=== PATIENT | male | born 1965 | race Caucasian/White ===

== ENCOUNTER 2019-12-14 19:03 | Emergency (ER) | payer OTHER ==
[~2019-12-14] VITALS: Ht 193 cm; Wt 120.0 kg
[~2019-12-14 19:03] MED LIST: CALC-126 PO; HYDR25TA6 PO
[2019-12-14 19:36] VITALS: BP 184/117
--- NOTE | 2019-12-14 19:45 | NUR ---
PT TO LOBBY, WAIT TIME EXPLAINED.
[2019-12-14] MEDS ORDERED: KETOROLAC 30 MG/1 ML IM ONE (20:00)
[2019-12-14] MEDS ORDERED: KETOROLAC 60 MG/2 ML ONE (20:11)
--- NOTE | 2019-12-14 20:32 | NUR ---
RN to bedside, patient reports twisting his ankle getting up from the desk, but decided to come to the ER when pain got worse. obvious swelling of right ankle, with minimal nonpitting edema. Xray already completed on [place] [facility] [place] [facility]. Patient resting comfortably with warm blanket in place. RN to bedside administered analgesic/antiinflammatory medication per provider order. Patient resting comfortably, provider followed to bedside to inform of imaging results. Awaiting for lab draw and results.
--- NOTE | 2019-12-14 20:36 | NUR ---
Lab results cancelled, vp ad products and planning informed. Awaiting for durability technician to provide with crutches and then discharge.
== END 2019-12-14 21:04 | disposition home or self-care (01) ==
LOC: ED 20:50
DX: M79.671 Pain in right foot (principal); I10 Essential (primary) hypertension
CPT/HCPCS: 73610; 73630; 96372; 99283; J1885